=== PATIENT | female | born 1950 | race Caucasian/White ===

== ENCOUNTER 2021-10-09 09:24 | Emergency (ER) | payer MEDICARE, BC ==
[~2021-10-09] VITALS: Ht 157.5 cm; Wt 65.9 kg
[2021-10-09 09:26] VITALS: BP 135/112
[2021-10-09] MEDS ORDERED: TETanus/Pertussis (Acell)/Diphther VAC/PF (Tdap-Adult) 0.5ml syringe IMVAC ONE (10:00)
== END 2021-10-09 13:01 | disposition left against medical advice (07) ==
LOC: ER 09:25
DX: S01.91XA Laceration without foreign body of unspecified part of head, initial encounter (principal); R42 Dizziness and giddiness; W19.XXXA Unspecified fall, initial encounter; Y93.89 Activity, other specified; Y92.89 Other specified places as the place of occurrence of the external cause; Y99.8 Other external cause status
CPT/HCPCS: 70450; 99284

== ENCOUNTER 2024-08-29 22:17 | Inpatient (IN) | payer MEDICARE, BC ==
[~2024-08-29] VITALS: Ht 157.5 cm; Wt 56.0 kg
[2024-08-29 22:30] LABS: BASOPHILS # (AUTO) 0.1 X10'3 (0-0.2); BASOPHILS % (AUTO) 0.8 % (0-1); EOSINOPHILS % (AUTO) 0 % (0-6); HEMOGLOBIN 12.7 g/dl (12.0-16.0); LYMPHOCYTES # (AUTO) 2.2 X10'3 (1.1-4.8); MEAN CORPUSCULAR HEMOGLOBIN 31.9 PG (27.0-31.0); MEAN CORPUSCULAR HGB CONC 34.4 g/dL (33.0-36.5); MEAN PLATELET VOLUME 10.6 FL (7.4-10.4); MONOCYTES # (AUTO) 0.7 X10'3 (0-0.9); MONOCYTES % (AUTO) 8.6 % (2-12); NEUTROPHILS # (AUTO) 5.2 X10'3 (1.8-7.7); NEUTROPHILS % (AUTO) 63.6 % (42-75); PLATELET COUNT 211 X10'3 (140-440); RED BLOOD COUNT 3.98 X10'6 (4.20-5.60); RED CELL DISTRIBUTION WIDTH 13.3 % (11.5-14.5); WHITE BLOOD COUNT 8.1 X10'3 (4.5-11.0)
[2024-08-29] MEDS ORDERED: heparin 10,000 units/1 ML INJ IV ONE (22:30)
[2024-08-29] MEDS: metoprolol tartrate 1mg/ml inj IV SCH (22:46)
[2024-08-29] MEDS: nitroGLYCERIN 0.4mg/hour patch TD ONE (22:47)
[2024-08-29 22:53] LABS: ALANINE AMINOTRANSFERASE 19 U/L (12-78); ALBUMIN 3.7 G/DL (3.4-5.0); ALBUMIN/GLOBULIN RATIO 1.1 (1.1-1.5); ALKALINE PHOSPHATASE 67 IU/L (46-116); ANION GAP 5 (8-16); ASPARTATE AMINO TRANSFERASE 9 U/L (10-37); BILIRUBIN,TOTAL 0.5 MG/DL (0.1-1.0); BLOOD UREA NITROGEN 27 MG/DL (7-18); BUN/CREATININE RATIO 19.1 (10.0-20.0); CALCIUM 8.8 MG/DL (8.5-10.1); CHLORIDE 104 MMOL/L (99-107); CREATININE 1.41 MG/DL (0.40-0.90); GLUCOSE 113 MG/DL (70-104); POTASSIUM 3.8 MMOL/L (3.5-5.1); PRO BRAIN NATRIURETIC PEPTIDE 406 PG/ML (0-450); SODIUM 137 MMOL/L (135-145); TOTAL PROTEIN 7.1 G/DL (6.4-8.2); eCRCL 27 ML/MIN; eGFR 36 ML/MIN
[2024-08-29 22:58] LABS: APTT 27 SECONDS (22-32); PROTHROMBIN TIME 10.4 SECONDS (9.0-12.0)
[2024-08-29] MEDS: heparin 25,000 UNIT/250ml bag 250 ML IV PRN (23:02)
[2024-08-29] MEDS: heparin 10,000 units/1 ML INJ IV ONE (23:03)
[2024-08-29] MEDS: LORazepam 2 mg/ml vial IV ONE (23:14)
[2024-08-29] MEDS ORDERED: nitroGLYCERIN 0.4mg SUBLingual tab SL PRN (23:35)
[2024-08-29] MEDS: metoprolol tartrate 1mg/ml inj IV ONE (23:36)
[2024-08-29] MEDS: metoprolol tartrate 50mg tablet PO ONE (23:50)
[2024-08-29] MEDS: enalaprilat dihydrate 2.5mg/2ml vial IV ONE (23:52)
[2024-08-30] VITALS (10 sets, daily range): BP systolic 138–178; BP diastolic 55–74; PULSE 68–88; RESP 11–20; TEMP 97.1–97.9; O2SAT 94–98
[2024-08-30] MEDS ORDERED: ASPI-1071 PO (00:23)
[2024-08-30] MEDS ORDERED: METO25TA6 PO (00:23)
[2024-08-30] MEDS ORDERED: magnesium sulf-water 2g/50mL 50 ML IV PRN (01:00)
[2024-08-30] MEDS ORDERED: magnesium sulf-water 4G/100mL 100 ML IV PRN (01:00)
[2024-08-30] MEDS ORDERED: potassium Cl 40MEQ/1/2NS 520ml 520 ML IV PRN (01:00)
[2024-08-30] MEDS ORDERED: magnesium Cl slow-release 64mg tablet PO PRN (01:00)
[2024-08-30] MEDS ORDERED: potassium Cl 20 mEq SR tablet PO PRN ×2 (01:00)
[2024-08-30] MEDS ORDERED: morphine 2 MG/ML inj. syringe IV PRN (01:00)
[2024-08-30] MEDS ORDERED: ondansetron/PF 4mg/2ml inj IV PRN (01:00)
[2024-08-30] MEDS ORDERED: magnesium hydroxide 30ml (MOM) UD suspension PO PRN (01:00)
[2024-08-30] MEDS ORDERED: mag hydrox/Alum hydrox/simeth 30ml oral suspension PO PRN (01:00)
[2024-08-30] MEDS: MESSAGE TO NURSING IV ONE ×3 (01:02→13:30)
[2024-08-30] MEDS: normal saline 1000ml 1,000 ML IV SCH (01:58)
[2024-08-30] MEDS: HYDROcodone/acetaminophen 5mg/325mg tablet PO PRN (01:58)
[2024-08-30] MEDS: aspirin 325mg tablet PO ONE (03:02)
[2024-08-30 05:16] LABS: CHOL/HDL RATIO 3.8 (0.00-4.99); CHOLESTEROL 220 MG/DL (0-200); HDL CHOLESTEROL 58 MG/DL (35-60); LDL CHOLESTEROL 139 MG/DL (50-100); TRIGLYCERIDES 77 MG/DL (20-135)
[2024-08-30] MEDS: enalaprilat dihydrate 2.5mg/2ml vial IV ONE (05:59)
[2024-08-30] MEDS: K and/or MAG REPLACEMENT MC SCH (08:00)
[2024-08-30] MEDS: aspirin 81mg, enteric-coated 1 TAB TABLET.DR PO SCH (09:16)
[2024-08-30] MEDS: metoprolol tartrate 25mg tablet PO SCH (09:16)
[2024-08-30] MEDS: docusate sod 100mg capsule PO SCH (09:16)
[2024-08-30] MEDS: heparin 10,000 units/1 ML INJ IV PRN (13:04)
[2024-08-30] MEDS: HYDROcodone/acetaminophen 10/325mg tab PO PRN (14:24)
[2024-08-30] MEDS ORDERED: LIDOcaine 1% (10mg/ml) 2ml vial ONE (15:05)
[2024-08-30] MEDS ORDERED: iohexol 350MG/ML 100ml bottle IV ONE (15:05)
[2024-08-30] MEDS ORDERED: verapamil 2.5 mg/ml inj IV ONE (15:05)
[2024-08-30] MEDS ORDERED: heparin 1,000unit/ml 10ml vial 10 ML ONE (15:05)
[2024-08-30] MEDS ORDERED: nitroGLYCERIN 500mcg/5mL D5W 5 ML IV ONE (15:12)
[2024-08-30] MEDS ORDERED: fentaNYL/PF 50MCG/1 ML 2ML syringe ONE (15:30)
[2024-08-30] MEDS ORDERED: midazolam 1 mg/ML 2ml injection ONE ×2 (15:30→17:24)
[2024-08-30] MEDS ORDERED: ticagrelor 90mg tablet ONE (17:23)
[2024-08-30] MEDS ORDERED: aspirin 325mg tablet ONE (17:23)
[2024-08-30] MEDS ORDERED: ondansetron/PF 4mg/2ml inj ONE (17:34)
[2024-08-30] MEDS: morphine 2 MG/ML inj. syringe IV PRN (19:34)
[2024-08-30] MEDS ORDERED: heparin, porcine 5000 units/ml vial SQ SCH (20:00)
[2024-08-30] MEDS ORDERED: ZOLP5TAB8 PO (23:23)
[2024-08-30] MEDS ORDERED: TRIA15CR61 (23:23)
[2024-08-31] VITALS (8 sets, daily range): BP systolic 137–156; BP diastolic 52–67; PULSE 64–82; RESP 14–18; TEMP 97.1–98.3; O2SAT 95–98
[2024-08-31] MEDS: acetaminophen 325mg tablet PO PRN (03:39)
[2024-08-31 06:38] LABS: BASOPHILS % (AUTO) 0.4 % (0-1); EOSINOPHILS % (AUTO) 0 % (0-6); HEMATOCRIT 34.7 % (35.0-45.0); HEMOGLOBIN 11.8 g/dl (12.0-16.0); LYMPHOCYTES # (AUTO) 0.9 X10'3 (1.1-4.8); MEAN CORPUSCULAR HEMOGLOBIN 31.6 PG (27.0-31.0); MEAN CORPUSCULAR HGB CONC 33.9 g/dL (33.0-36.5); MEAN CORPUSCULAR VOLUME 93.1 FL (78-98); MEAN PLATELET VOLUME 10.8 FL (7.4-10.4); MONOCYTES # (AUTO) 0.7 X10'3 (0-0.9); MONOCYTES % (AUTO) 8.9 % (2-12); NEUTROPHILS # (AUTO) 6.4 X10'3 (1.8-7.7); NEUTROPHILS % (AUTO) 79.7 % (42-75); PLATELET COUNT 168 X10'3 (140-440); RED BLOOD COUNT 3.73 X10'6 (4.20-5.60); RED CELL DISTRIBUTION WIDTH 13.7 % (11.5-14.5)
[2024-08-31 06:53] LABS: ALANINE AMINOTRANSFERASE 15 U/L (12-78); ALBUMIN 2.9 G/DL (3.4-5.0); ALBUMIN/GLOBULIN RATIO 0.9 (1.1-1.5); ALKALINE PHOSPHATASE 58 IU/L (46-116); ANION GAP 9 (8-16); ASPARTATE AMINO TRANSFERASE 21 U/L (10-37); BILIRUBIN,TOTAL 0.7 MG/DL (0.1-1.0); BLOOD UREA NITROGEN 11 MG/DL (7-18); BUN/CREATININE RATIO 12.9 (10.0-20.0); CALCIUM 8.3 MG/DL (8.5-10.1); CHLORIDE 107 MMOL/L (99-107); CREATININE 0.85 MG/DL (0.40-0.90); GLUCOSE 99 MG/DL (70-104); MAGNESIUM 1.9 MG/DL (1.5-2.4); POTASSIUM 3.6 MMOL/L (3.5-5.1); SODIUM 139 MMOL/L (135-145); TOTAL CARBON DIOXIDE 23.2 MMOL/L (24-32); TOTAL PROTEIN 6.2 G/DL (6.4-8.2); eCRCL 45 ML/MIN; eGFR 65 ML/MIN
[2024-08-31] MEDS: ticagrelor 90mg tablet PO SCH (08:09)
[2024-08-31] MEDS: ezetimibe 10mg tablet PO SCH (08:13)
[2024-08-31 08:39] LABS: LARGE PLATELETS MODERATE; PLATELET ESTIMATE NORMAL
[2024-08-31] MEDS ORDERED: EZET10TA48 PO (10:00)
[2024-08-31] MEDS ORDERED: ASPI-1265 PO (10:00)
[2024-08-31] MEDS ORDERED: TICA90TA PO (10:00)
== END 2024-08-31 13:05 | disposition home or self-care (01) | DRG 321 ==
LOC: ER 22:17 → ED HOLD 08-30 01:02 → PCU 3S 08-30 18:45
PROVIDERS: ADMIT Internal Medicine Critical Care Medicine; ATTEND Internal Medicine
PROC: 027034Z Dilation of Coronary Artery, One Artery with Drug-eluting Intraluminal Device, Percutaneous Approach (ICD-10-PCS; principal; 2024-08-30)
PROC: 4A023N7 Measurement of Cardiac Sampling and Pressure, Left Heart, Percutaneous Approach (ICD-10-PCS; 2024-08-30)
PROC: B2111ZZ Fluoroscopy of Multiple Coronary Arteries using Low Osmolar Contrast (ICD-10-PCS; 2024-08-30)
PROC: B2150ZZ Fluoroscopy of Left Heart using High Osmolar Contrast (ICD-10-PCS; 2024-08-30)
DX: T82.855A Stenosis of coronary artery stent, initial encounter (principal); I21.4 Non-ST elevation (NSTEMI) myocardial infarction; N17.0 Acute kidney failure with tubular necrosis; E78.5 Hyperlipidemia, unspecified; I10 Essential (primary) hypertension; Y83.1 Surgical operation with implant of artificial internal device as the cause of abnormal reaction of the patient, or of later complication, without mention of misadventure at the time of the procedure; Z88.8 Allergy status to other drugs, medicaments and biological substances; I25.2 Old myocardial infarction; Z87.891 Personal history of nicotine dependence; Z79.82 Long term (current) use of aspirin; Z87.440 Personal history of urinary (tract) infections; Y92.89 Other specified places as the place of occurrence of the external cause; Z88.1 Allergy status to other antibiotic agents; Z95.5 Presence of coronary angioplasty implant and graft
CPT/HCPCS: 93306; 93458; 99285; C9600; 36415; 71045; 80053; 80061; 83735; 83880; 84132; 84484; 85008; 85025; 85347; 85610; 85730; 87081; 93005; 99152; 99153; A6258; C1725; C1751; C1769; C1874; C1894; G0378; J1644; J2003; J2060; J2250; J2270; J2405; J3010; J3490; J7030; Q9967